=== PATIENT | male | born 1955 | race Caucasian/White ===

== ENCOUNTER 2017-02-08 15:16 | Emergency (ER) | payer OTHER ==
[~2017-02-08] VITALS: Ht 177.8 cm; Wt 117.9 kg
[2017-02-08] MEDS ORDERED: ULTRAM 50MG TAB50 MG PO (16:53)
[2017-02-08] MEDS ORDERED: NAPROSYN500 MG PO (16:53)
[2017-02-08] MEDS ORDERED: COZAAR 50 MG TA50 M2 PO (18:02)
[2017-02-08] MEDS ORDERED: RANITIDINE 150150 MG PO (18:03)
[2017-02-08] MEDS ORDERED: ZOCOR40 MG PO (18:03)
[2017-02-08] MEDS ORDERED: ALLOPURINOL 30300 M1 PO (18:03)
[2017-02-08 18:04] VITALS: BP 152/102
== END 2017-02-08 18:15 | disposition home or self-care (01) ==
LOC: ER 15:16
DX: S00.03XA Contusion of scalp, initial encounter (principal); I10 Essential (primary) hypertension; E78.00 Pure hypercholesterolemia, unspecified; M10.9 Gout, unspecified; M19.90 Unspecified osteoarthritis, unspecified site; W22.8XXA Striking against or struck by other objects, initial encounter; Y93.01 Activity, walking, marching and hiking; Y92.59 Other trade areas as the place of occurrence of the external cause; Y99.8 Other external cause status